=== PATIENT | male | born 2000 | race Caucasian/White ===

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

== ENCOUNTER 2021-12-26 15:30 | Emergency (ER) | payer OTHER | END 2021-12-26 16:40 | disposition home or self-care (01) | LOC: JP.ED 15:30 | DX: H66.003 Acute suppurative otitis media without spontaneous rupture of ear drum, bilateral (principal) | CPT/HCPCS: 99282; 99283 ==

== ENCOUNTER 2024-01-05 07:23 | Emergency (ER) | payer OTHER ==
[2024-01-05] MEDS: Proparacaine 0.5% Ophth Soln 15 ML Bottle EYELF ONE (08:02)
== END 2024-01-05 08:27 | disposition home or self-care (01) ==
LOC: JP.ED 07:23
DX: S05.02XA Injury of conjunctiva and corneal abrasion without foreign body, left eye, initial encounter (principal); W44.8XXA Other foreign body entering into or through a natural orifice, initial encounter
CPT/HCPCS: 99283; A9270